=== PATIENT | female | born 1950 | race Caucasian/White ===

== ENCOUNTER → 2022-06-07 13:42 | Outpatient (BNVA) | payer MEDICARE, SELFPAY | PROVIDERS: Family Provider Physician Assistant | DX: J02.9 Acute pharyngitis, unspecified (principal) | CPT/HCPCS: 87400 ==

== ENCOUNTER → 2024-10-05 15:45 | Outpatient (BNVA) | payer OTHER, SELFPAY | PROVIDERS: Family Provider Physician Assistant; Visit Provider Orthopaedic Surgery | DX: M54.9 Dorsalgia, unspecified (principal) | CPT/HCPCS: 72110; 99203 ==

== ENCOUNTER 2024-10-14 06:54 | Outpatient (CLI) | payer OTHER, SELFPAY ==
--- NOTE | 2024-10-14 07:15 | MR_ITS ---
WS: [id number] MRI THORACIC SPINE WITHOUT CONTRAST TECHNIQUE: Sagittal T1, T2 and STIR imaging. Axial T2 imaging. Noncontrast imaging obtained. CLINICAL INFORMATION: back pain FINDINGS: Moderate thoracic kyphosis. Acute compression fracture with diffuse edema T11 vertebral body. Loss of approximately 20% vertebral body height with mild retropulsion of the posterior superior cortex. Mild central canal stenosis. Fracture cleft visualized in the superior endplate. Edema extends into the pedicles bilaterally. Cord signal appears normal. Chronic compression with anterior wedging T8 vertebral body with chronic retropulsion.Mild central canal stenosis. Endplate Schmorl's node at T12 with chronic anterior wedging No other acute compression fractures. Normal caliber thoracic aorta. Adrenal glands are normal. Small esophageal hiatal hernia. MR/MR thoracic spin wo con* [id number] IMPRESSION: 1. Acute compression T11 vertebral body with loss of approximately 20% vertebr al body height and diffuse edema. Mild retropulsion with mild central canal gustavo nosis. 2. Chronic compression with near vertebral plana at T8 with chronic retropulsi on. 3. Chronic compression inferior endplate with anterior wedging at T12. 4. Cord signal is normal.
[2024-10-14 13:48] LABS: Basophils # 0.1 10^3/uL (0.0-0.1); Basophils % 0.5 %; Eosinophils # 0.2 10^3/uL (0.0-0.8); Eosinophils % 1.4 %; Hematocrit 48.2 % (36-47); Lymphocytes # 1.8 10^3/uL (0.8-4.8); Lymphocytes % 15.8 %; Mean Corpuscular HGB Conc 31.5 g/dL (30-55); Mean Corpuscular Hemoglobin 29.2 pg (27-33); Mean Corpuscular Volume 92.7 fl (85-98); Mean Platelet Volume 10.3 fL (7.4-10.4); Monocytes # 0.9 10^3/uL (0.2-0.9); Monocytes % 8.1 %; Neutrophils # 8.37 10^3/uL (1.8-7.7); Neutrophils % 73.9 %; Nucleated Red Blood Cells % 0 %; Platelet Count 289 10^3/cmm (157-399); Red Cell Distribution Width 14.6 % (12.1-15.1); White Blood Count 11.33 10^3/uL (3.29-11.43)
[2024-10-14 14:12] LABS: Alanine Aminotransferase 24 U/L (0-33); Albumin Level 4.5 g/dL (3.5-5.2); Alkaline Phosphatase 119 U/L (35-105); Anion Gap 14.3 (5-19); Aspartate Amino Transferase 19 U/L (0-32); Blood Urea Nitrogen 19 mg/dL (8-23); Calcium 9.9 mg/dL (8.5-10.5); Carbon Dioxide 30 mmol/L (22-29); Chloride 103 mmol/L (98-107); Globulin 3.5 g/dL (1.3-4.6); Glucose 104 mg/dL (65-115); Osmolality Calculated 299 mOsm/kg (285-295); Potassium 4.3 mmol/L (3.5-5.1); Sodium 143 mmol/L (136-145); Total Bilirubin 0.2 mg/dL (0.15-1.2)
[2024-10-14 14:57] LABS: Bacteria Urine None Seen /hpf; Hyaline Casts Urine 0-4 /lpf; WBC Urine 0-5 /hpf (0-5)
[2024-10-14 15:00] LABS: Add Urine Microscopic? YES; Bilirubin Urine Neg (Negative); Blood Urine 2+ (Negative); Glucose Urine UA Norm (Normal); Ketones Urine Negative (Negative); Leukocyte Esterase Urine Trace (Negative); Nitrate Urine Negative (Negative); Protein Urine Trace (Negative); Urine Appearance Clear (CLEAR); Urine Color Yellow (Yellow); Urobilinogen Urine Norm (Negative); pH Urine 5 (5-7)
== END 2024-10-14 06:55 | disposition home or self-care (01) ==
PROVIDERS: Family Provider Physician Assistant; Visit Provider Orthopaedic Surgery
DX: Z01.818 Encounter for other preprocedural examination (principal); S22.089A Unspecified fracture of T11-T12 vertebra, initial encounter for closed fracture; X58.XXXA Exposure to other specified factors, initial encounter; M40.294 Other kyphosis, thoracic region; M48.04 Spinal stenosis, thoracic region; R93.7 Abnormal findings on diagnostic imaging of other parts of musculoskeletal system; M51.44 Schmorl's nodes, thoracic region; K44.9 Diaphragmatic hernia without obstruction or gangrene
CPT/HCPCS: 36415; 72146; 80053; 81001; 85025; 99214

== ENCOUNTER 2024-10-18 07:59 | Day surgery (SDC) | payer OTHER, SELFPAY ==
[2024-10-18] VITALS (12 sets, daily range): BP systolic 117–183; BP diastolic 70–96; PULSE 70–87; RESP 12–22; TEMP 36.4; O2SAT 93–99; BMI 31.5
--- NOTE | 2024-10-18 08:15 | SC_ITS ---
WS: [id number] Exam: C-arm FL for Kyphoplasty Date/Time of Exam: 10/18/2024 8:15 AM Reason For Exam: Surgery T11 kyphoplasty AP and lateral intraoperative C-arm images of the thoracolumbar junction are submitted. Images depict kyphoplasty of the T11 vertebral body. Images are obtained for intraoperative visualization.
--- NOTE | 2024-10-18 09:11 | ANES.PREANE2 ---
Pre-Anesthetic Assessment Height/Weight: Height 4 ft 11 in Weight 156 lb Temp Pulse Resp BP Pulse Ox O2 Del Method 97.5 F L 73 22 H 148/80 95 Room Air 10/18/24 08:35 10/18/24 08:35 10/18/24 08:35 10/18/24 08:35 10/18/24 08:35 10/18/24 08:41 Preop Diagnosis: T11 compression fracture osteoporotic wedge traumatic Operation Date: 10/18/24 10:10 Proposed Procedures p Kyphoplasty(Not Applicable) - Jan Kulkarni, DO Was Beta Lorrie taken within 24 hours: Yes Was Clonidine taken within 24 hours: N/A Last intake: Intake Last Liquid Date 10/17/24 Last Liquid Time 22:30 Last Solid Date 10/27/24 Last Solid Time 18:30 Social Tobacco and No alcohol Exam alert, oriented x 3 and regular rate & rhythm Decreased breath sounds bilaterally Airway Submandibular: within normal limits Cervical ROM: within normal limits Mallampati: Class III Comments: Comments: Very poor dentition, denies any loose Anesthetic Plan ASA status: 3 Anesthesia: General Other: No prior issues with anesthesia NPO since yesterday evening History of hypertension on metoprolol COPD, still smoking GERD, controlled with Pepcid Recent labs reviewed and acceptable for procedure today Patient states that she is able to get around and perform ADLs Plan for general anesthesia Medications/Allergies Home Medications ?Medication ?Instructions ?Recorded ?Confirmed ?Last Taken ?Type metoprolol succinate 50 mg 50 mg PO DAILY 06/07/22 10/15/24 10/18/24 History tablet,extended release 24 hr albuterol sulfate 90 mcg/actuation 2 puff inhalation PRN 10/15/24 10/15/24 Unknown History aerosol inhaler budesonide 160 mcg-glycopyr 9 1 inh inhalation DAILY 10/15/24 10/15/24 10/15/24 History mcg-formot 4.8 mcg/actuation HFA inhaler (Breztri Aerosphere) duloxetine 30 mg capsule,delayed 30 mg PO DAILY 10/15/24 10/15/24 10/15/24 History release famotidine 40 mg tablet 40 mg PO DAILY 10/15/24 10/15/24 10/18/24 History letrozole 2.5 mg tablet 2.5 mg PO DAILY 10/15/24 10/15/24 10/15/24 History Allergies Allergy/AdvReac Type Severity Reaction Status Date / Time No Known Allergies Allergy Verified 10/15/24 13:00 [facility] Anesthesia Social History Smoking and tobacco/nicotine status: unknown if used tobacco/nicotine Data Anesthesia Cardiac Studies: No Data to Display
[2024-10-18] MEDS: ceFAZolin 2,000 mg SDV 2000 MG IVP (10:02)
--- NOTE | 2024-10-18 10:09 | W.PM.OPSUD ---
Surgery/Procedure H&P Update DATE OF PROCEDURE: October 18, 2024 DATE H&P PERFORMED: 10/14/24 H&P UPDATE INFORMATION: I have reviewed H&P completed within last 30 days, I have examined patient prior to procedure and No changes to prior documentation PREOP DIAGNOSIS: T11 compression fracture osteoporotic wedge traumatic PLANNED PROCEDURE: Operation Date: 10/18/24 10:10 Proposed Procedures p Kyphoplasty(Not Applicable) - Jan Kulkarni DO
[2024-10-18] MEDS: lidocaine-epi 1% PF 1:200,000 30 mL SDV INJECTION (10:29)
--- NOTE | 2024-10-18 10:52 | PM.OP ---
Operative Report Date of procedure: October 18, 2024 Pre-op diagnosis: T11 wedge osteoporotic traumatic compression fracture Post-op diagnosis: same Procedure done: T11 kyphoplasty Surgeon: Jan Kulkarni DO Estimated blood loss (mL): 5 Procedure: Patient is brought to the operative suite after going anesthesia patient was placed in the prone position. All areas impingement well-padded. Patient was prepped and draped normal sterile fashion. Biplanar fluoroscopy was used. The T11 level was identified. Skin incisions made next to the left pedicle. The awl was inserted. This was placed down the left pedicle. Then the drill was inserted and then the balloon was inserted. The balloon was inflated and then deflated. Balloon was then removed. And then cement tube was then placed and cement was placed into the vertebral body had good fill across the body. AP lateral fluoroscopy ensured the cement was in good position. Wound was irrigated and closed with nylon suture. Sterile dressings applied patient transferred to the PACU in stable condition.
[2024-10-18] MEDS: ondansetron 2 mg/ML SDV 2 mL 4 MG IVP ×3 (11:26→12:27)
[2024-10-18] MEDS: sodium chloride 0.9% 1,000 ML 30 ML IV (12:48)
--- NOTE | 2024-10-18 12:48 | ANE.PACU2 ---
Inpatient post-anesthesia follow up: Airway intact: Yes Vital signs: Temperature 97.6 F Pulse Rate 72 Respiratory Rate 17 Blood Pressure 132/70 Pulse Oximetry 93 Oxygen Delivery Me thod Room Air Oxygen Flow Rate 2 Fraction of Inspir ed Oxygen Hydration adequate: Yes Nausea and vomiting: No Pain level: 1 Mental status: Baseline
== END 2024-10-18 12:48 | disposition home or self-care (01) ==
PROVIDERS: PCP Family Medicine; Visit Provider Orthopaedic Surgery
PROC: (CPT 22513; principal; 2024-10-18 10:10)
DX: M80.08XA Age-related osteoporosis with current pathological fracture, vertebra(e), initial encounter for fracture (principal); K08.89 Other specified disorders of teeth and supporting structures; J44.9 Chronic obstructive pulmonary disease, unspecified; I10 Essential (primary) hypertension; Z79.899 Other long term (current) drug therapy
CPT/HCPCS: 22513; 76000; A4216; J0690; J1100; J2405; J2704; J3010; J3490; J7030; J9999

== ENCOUNTER → 2024-11-02 11:02 | Outpatient (BNVA) | payer OTHER, SELFPAY | PROVIDERS: PCP Family Medicine; Visit Provider Orthopaedic Surgery | DX: Z98.890 Other specified postprocedural states (principal) | CPT/HCPCS: 72100; 99024 ==

== ENCOUNTER → 2024-12-14 10:31 | Outpatient (BNVA) | payer OTHER, SELFPAY | PROVIDERS: PCP Family Medicine; Visit Provider Orthopaedic Surgery | DX: M54.9 Dorsalgia, unspecified (principal) | CPT/HCPCS: 72072; 99213 ==